=== PATIENT | male | born 1970 | race African-American/Black ===

== ENCOUNTER 2021-07-05 01:03 | Observation (INO) | payer SELFPAY ==
[2021-07-05 03:18] VITALS: BMI 34.7
[2021-07-05] MEDS ORDERED: Ondansetron PF 4 MG/2 ML Vial IVP PRN (03:24)
[2021-07-05] MEDS ORDERED: Nitroglycerin 0.4 MG TAB (25 Tab Bottle) SL PRN (03:24)
[2021-07-05] MEDS ORDERED: Acetaminophen 325 MG TAB PO PRN (03:24)
[2021-07-05] MEDS ORDERED: Morphine 4 MG/ML VIAL SLOW IVP PRN (03:55)
[2021-07-05 05:03] LABS: #Eosinphils 0.1 thou/uL (0.0-0.7); #Lymphocytes 2.4 thou/uL (1.20-3.40); #Monocytes 0.6 thou/uL (0.11-0.59); #Neutrophils 2.2 thou/uL (1.40-6.50); %Basophils 0.6 % (0.0-1.0); %Eosinophils 1.5 % (0.0-10.0); %Lymphocytes 45.4 % (21.0-51.0); %Monocytes 11.1 % (0.0-10.0); %Neutrophils 41.4 % (42.0-75.0); Hemoglobin 12.5 g/dL (14.0-18.0); Mean Corpuscular HGB CONC 34.2 g/dL (32.0-36.0); Mean Corpuscular Hemoglobin 29.9 pg (27.0-31.0); Mean Corpuscular Volume 87.3 fL (78.0-98.0); Mean Platelet Volume 6.9 fL (7.4-10.4); Platelet Count 226 thou/uL (130-400); RBC Distribution Width 12.1 % (11.5-14.5); Red Blood Cell (RBC) Count 4.19 mill/uL (4.70-6.10); White Blood Cell (WBC) Count 5.2 thou/uL (4.8-10.8)
[2021-07-05 05:06] LABS: Anion Gap 11 mmol/L (10-20); BUN (Urea Nitrogen) 15 mg/dL (8.4-25.7); Calc. Creatinine Clearance 134 mL/min (70-130); Calcium 8.8 mg/dL (7.8-10.44); Carbon Dioxide 23 mmol/L (22-29); Cardiac Risk 3.2 (Less than 4.5); Chloride 106 mmol/L (98-107); Cholesterol 147 mg/dl (< 200 Desired); Glucose 87 mg/dL (70-105); HDL Cholesterol 46 mg/dL (>60 Neg Risk); LDL Cholesterol, Calculated 91 mg/dL; Potassium 3.8 mmol/L (3.5-5.1); Sodium 136 mmol/L (136-145); Triglycerides 52 mg/dL (Less than 150)
[2021-07-05 05:08] LABS: Troponin I Less than 0.010 ng/mL (< 0.028)
[2021-07-05] MEDS ORDERED: Atropine Sulfate 1 mg/10 ml Syringe IVP SCH (05:30)
[2021-07-05] MEDS ORDERED: CATH Communication Order-Pharmacy FS SCH (08:15)
[2021-07-05] MEDS ORDERED: Sodium Chloride 0.9% 1,000 ML IV SCH ×2 (08:15→15:36)
[2021-07-05 08:16] LABS: Troponin I Less than 0.010 ng/mL (< 0.028)
[2021-07-05] MEDS ORDERED: Enoxaparin Sodium 40 MG/0.4 ML SYRINGE SC SCH (09:00)
[2021-07-05] MEDS: Amlodipine 10 MG TAB PO SCH (09:10)
[2021-07-05] MEDS: Aspirin 81 mg Enteric Coated Tablet PO SCH (09:11)
[2021-07-05] MEDS: Triamterene/Hydrochlorothiazide 37.5 mg/25 mg Tablet PO SCH (10:00)
[2021-07-05] MEDS ORDERED: Heparin 10,000 UNITS/ 10 ML VIAL ONE (13:30)
[2021-07-05] MEDS ORDERED: Midazolam HCl 2 mg/2 ml Vial ONE (13:44)
[2021-07-05] MEDS ORDERED: Fentanyl 100 MCG/2 ML VIAL ONE (13:44)
[2021-07-05] MEDS ORDERED: Bivalirudin 250 MG VIAL ONE (14:25)
[2021-07-05] MEDS ORDERED: Clopidogrel Bisulfate 300 MG TAB ONE (14:35)
[2021-07-05] MEDS ORDERED: hydrALAZINE 20 MG/ML VIAL SLOW IVP PRN (15:53)
[2021-07-05] MEDS ORDERED: hydrALAZINE 20 MG/ML VIAL ONE (15:54)
[2021-07-05] MEDS ORDERED: Morphine 4 MG/ML VIAL ONE (17:40)
[2021-07-05] MEDS ORDERED: Atorvastatin Calcium 10 MG TAB PO SCH (21:00)
[2021-07-05] MEDS ORDERED: Atorvastatin Calcium 20 MG TAB PO SCH (21:00)
[2021-07-05] MEDS: Famotidine 20 MG TAB PO SCH (21:26)
[2021-07-05] MEDS ORDERED: Calcium Carbonate 500 MG ChewTAB PO SCH (23:45)
[2021-07-06 04:57] LABS: #Eosinphils 0.1 thou/uL (0.0-0.7); #Lymphocytes 1.5 thou/uL (1.20-3.40); #Monocytes 0.6 thou/uL (0.11-0.59); #Neutrophils 3.4 thou/uL (1.40-6.50); %Basophils 0.5 % (0.0-1.0); %Eosinophils 1.4 % (0.0-10.0); %Lymphocytes 26.7 % (21.0-51.0); %Monocytes 10.5 % (0.0-10.0); %Neutrophils 60.8 % (42.0-75.0); Hemoglobin 13.4 g/dL (14.0-18.0); Mean Corpuscular HGB CONC 35.2 g/dL (32.0-36.0); Mean Corpuscular Hemoglobin 30.4 pg (27.0-31.0); Mean Corpuscular Volume 86.2 fL (78.0-98.0); Mean Platelet Volume 6.9 fL (7.4-10.4); Platelet Count 250 thou/uL (130-400); RBC Distribution Width 12.1 % (11.5-14.5); Red Blood Cell (RBC) Count 4.42 mill/uL (4.70-6.10); White Blood Cell (WBC) Count 5.5 thou/uL (4.8-10.8)
[2021-07-06 05:18] LABS: ALT (SGPT) 14 U/L (8-55); AST (SGOT) 13 U/L (5-34); Albumin 3.7 g/dL (3.5-5.0); Alkaline Phosphatase 50 U/L (40-110); Anion Gap 10 mmol/L (10-20); BUN (Urea Nitrogen) 16 mg/dL (8.4-25.7); Bilirubin, Total 0.3 mg/dL (0.2-1.2); Calc. Creatinine Clearance 114 mL/min (70-130); Calcium 9.3 mg/dL (7.8-10.44); Carbon Dioxide 26 mmol/L (22-29); Chloride 105 mmol/L (98-107); Globulin 2.9 g/dL (2.4-3.5); Glucose 90 mg/dL (70-105); Magnesium 2.3 mg/dL (1.6-2.6); Potassium 3.8 mmol/L (3.5-5.1); Protein, Total 6.6 g/dL (6.0-8.3); Sodium 137 mmol/L (136-145)
[2021-07-06] MEDS: Amlodipine 10 MG TAB PO SCH (09:33)
[2021-07-06] MEDS: Aspirin 81 mg Enteric Coated Tablet PO SCH (09:33)
[2021-07-06] MEDS: Famotidine 20 MG TAB PO SCH (09:34)
[2021-07-06] MEDS: Triamterene/Hydrochlorothiazide 37.5 mg/25 mg Tablet PO SCH (10:18)
[2021-07-06] MEDS ORDERED: hydrALAZINE 25 MG TAB PO SCH ×2 (10:30→21:00)
[2021-07-06 12:16] VITALS: BP 129/78; TEMP 97.3
== END 2021-07-06 12:05 | disposition home or self-care (01) ==
LOC: 2NO 01:03
PROVIDERS: ADMIT Internal Medicine; ATTEND Internal Medicine
PROC: 02703ZZ Dilation of Coronary Artery, One Artery, Percutaneous Approach (ICD-10-PCS; principal; 2021-07-05)
PROC: 4A023N7 Measurement of Cardiac Sampling and Pressure, Left Heart, Percutaneous Approach (ICD-10-PCS; 2021-07-05)
PROC: B2111ZZ Fluoroscopy of Multiple Coronary Arteries using Low Osmolar Contrast (ICD-10-PCS; 2021-07-05)
DX: I24.9 Acute ischemic heart disease, unspecified (principal); I25.10 Atherosclerotic heart disease of native coronary artery without angina pectoris; I10 Essential (primary) hypertension; E78.5 Hyperlipidemia, unspecified; R00.1 Bradycardia, unspecified; T44.7X5A Adverse effect of beta-adrenoreceptor antagonists, initial encounter; D53.9 Nutritional anemia, unspecified; I45.10 Unspecified right bundle-branch block; E78.00 Pure hypercholesterolemia, unspecified; F17.290 Nicotine dependence, other tobacco product, uncomplicated; E66.9 Obesity, unspecified; Z68.34 Body mass index [BMI] 34.0-34.9, adult; Z79.82 Long term (current) use of aspirin; Z79.899 Other long term (current) drug therapy; Z88.8 Allergy status to other drugs, medicaments and biological substances
CPT/HCPCS: 36415; 80048; 80053; 80061; 83735; 84484; 85025; 85347; 92920; 93005; 93010; 93458; 96374; 99152; 99153; C1769; C1874; G0378; J0153; J0360; J0461; J0583; J1644; J2250; J2270; J3010; J7050

== ENCOUNTER 2021-09-30 14:02 | Observation (INO) | payer OTHER, SELFPAY ==
[2021-09-30 15:55] VITALS: BMI 35.5
[2021-09-30] MEDS ORDERED: Morphine 2 MG/ML VIAL SLOW IVP PRN (16:10)
[2021-09-30] MEDS ORDERED: Acetaminophen 325 MG TAB PO PRN (17:00)
[2021-09-30] MEDS ORDERED: Ondansetron ODT 4 MG TAB PO PRN (17:00)
[2021-09-30] MEDS ORDERED: Ondansetron PF 4 MG/2 ML Vial IVP PRN (17:00)
[2021-09-30] MEDS ORDERED: Nitroglycerin 0.4 MG TAB (25 Tab Bottle) SL PRN (17:01)
[2021-09-30] MEDS ORDERED: hydrALAZINE 20 MG/ML VIAL SLOW IVP PRN (17:02)
[2021-09-30] MEDS ORDERED: Aspirin Chewable 81 MG TAB PO SCH (17:15)
[2021-09-30] MEDS ORDERED: Electrolyte Replacement Protocol FS PRN (17:15)
[2021-09-30] MEDS ORDERED: Electrolyte Replacement Protocol 1 EACH FS SCH (17:15)
[2021-09-30] MEDS ORDERED: Nicotine 7 MG PATCH TD PRN (17:31)
[2021-09-30 20:41] LABS: Amphetamine Not Detected (NotDetected); Barbiturates Screen Not Detected (NotDetected); Benzodiazepine Screen Not Detected (NotDetected); Cocaine Metabolite Screen Detected (NotDetected); Methadone Not Detected (NotDetected); Methamphetamine Not Detected (NotDetected); Opiate Screen Not Detected (NotDetected); Oxycodone Screen Not Detected (NotDetected); Phencyclidine (PCP) Not Detected (NotDetected); THC/Cannabinoid Screen Not Detected (NotDetected); Tricyclic Screen Not Detected (NotDetected)
[2021-09-30] MEDS ORDERED: Magnesium 2 GM/50 ML(in water) 2 GM in Premix Bag 1 BAG IVPB SCH (20:45)
[2021-09-30] MEDS: Sodium Chloride 0.9% 1,000 ML IV SCH (21:03)
[2021-09-30] MEDS: Atorvastatin Calcium 40 MG TAB PO SCH (21:05)
[2021-09-30] MEDS: hydrALAZINE 25 MG TAB PO SCH (21:05)
[2021-09-30] MEDS ORDERED: Nitroglycerin 2% Ointment 1 INCH/1 GM Packet TOP SCH (22:00)
[2021-10-01 07:14] LABS: #Eosinphils 0.1 thou/uL (0.0-0.7); #Lymphocytes 1.9 thou/uL (1.20-3.40); #Monocytes 0.4 thou/uL (0.11-0.59); #Neutrophils 1.9 thou/uL (1.40-6.50); %Basophils 0.9 % (0.0-1.0); %Eosinophils 2.3 % (0.0-10.0); %Lymphocytes 43.6 % (21.0-51.0); %Monocytes 9.2 % (0.0-10.0); Hemoglobin 13.3 g/dL (14.0-18.0); Mean Corpuscular HGB CONC 34.8 g/dL (32.0-36.0); Mean Corpuscular Hemoglobin 30.4 pg (27.0-31.0); Mean Corpuscular Volume 87.5 fL (78.0-98.0); Mean Platelet Volume 7.2 fL (7.4-10.4); Platelet Count 202 thou/uL (130-400); RBC Distribution Width 12.5 % (11.5-14.5); Red Blood Cell (RBC) Count 4.38 mill/uL (4.70-6.10); White Blood Cell (WBC) Count 4.2 thou/uL (4.8-10.8)
[2021-10-01 07:35] LABS: Anion Gap 11 mmol/L (10-20); BUN (Urea Nitrogen) 16 mg/dL (8.4-25.7); Calc. Creatinine Clearance 109 mL/min (70-130); Carbon Dioxide 27 mmol/L (22-29); Cardiac Risk 3.1 (Less than 4.5); Chloride 106 mmol/L (98-107); Cholesterol 125 mg/dl (< 200 Desired); Glucose 98 mg/dL (70-105); HDL Cholesterol 40 mg/dL (>60 Neg Risk); LDL Cholesterol, Calculated 62 mg/dL; Magnesium 2.2 mg/dL (1.6-2.6); Potassium 3.8 mmol/L (3.5-5.1); Sodium 140 mmol/L (136-145); Triglycerides 115 mg/dL (Less than 150)
[2021-10-01] MEDS: hydrALAZINE 25 MG TAB PO SCH ×2 (08:28→21:04)
[2021-10-01] MEDS: Aspirin Chewable 81 MG TAB PO SCH (08:28)
[2021-10-01] MEDS: Amlodipine 5 MG TAB PO SCH (08:28)
[2021-10-01] MEDS: Sodium Chloride 0.9% 1,000 ML IV SCH (11:10)
[2021-10-01] MEDS ORDERED: Lidocaine 2% Viscous Solution 20 ML, Aluminum & Magnesium Hydroxide 30 ML, Donnatal Eli... SSW SCH (14:15)
[2021-10-01] MEDS: Atorvastatin Calcium 40 MG TAB PO SCH (21:05)
[2021-10-02] MEDS: Sodium Chloride 0.9% 1,000 ML IV SCH ×3 (00:27→12:27)
[2021-10-02 05:17] LABS: #Eosinphils 0.1 thou/uL (0.0-0.7); #Lymphocytes 1.5 thou/uL (1.20-3.40); #Monocytes 0.4 thou/uL (0.11-0.59); #Neutrophils 1.9 thou/uL (1.40-6.50); %Basophils 0.6 % (0.0-1.0); %Eosinophils 2.2 % (0.0-10.0); %Lymphocytes 38.5 % (21.0-51.0); %Monocytes 10.3 % (0.0-10.0); %Neutrophils 48.4 % (42.0-75.0); Hemoglobin 12.5 g/dL (14.0-18.0); Mean Corpuscular HGB CONC 35.3 g/dL (32.0-36.0); Mean Corpuscular Hemoglobin 30.7 pg (27.0-31.0); Mean Corpuscular Volume 86.8 fL (78.0-98.0); Mean Platelet Volume 7.4 fL (7.4-10.4); Platelet Count 211 thou/uL (130-400); RBC Distribution Width 12.5 % (11.5-14.5); Red Blood Cell (RBC) Count 4.09 mill/uL (4.70-6.10); White Blood Cell (WBC) Count 3.9 thou/uL (4.8-10.8)
[2021-10-02 05:37] LABS: Anion Gap 9 mmol/L (10-20); BUN (Urea Nitrogen) 18 mg/dL (8.4-25.7); Calc. Creatinine Clearance 114 mL/min (70-130); Calcium 8.7 mg/dL (7.8-10.44); Carbon Dioxide 29 mmol/L (22-29); Chloride 105 mmol/L (98-107); Glucose 101 mg/dL (70-105); Potassium 3.8 mmol/L (3.5-5.1); Sodium 139 mmol/L (136-145)
[2021-10-02] MEDS: Amlodipine 5 MG TAB PO SCH (09:19)
[2021-10-02] MEDS: Aspirin Chewable 81 MG TAB PO SCH (09:20)
[2021-10-02] MEDS: hydrALAZINE 25 MG TAB PO SCH (09:20)
[2021-10-02 11:53] VITALS: BP 140/90; TEMP 98
== END 2021-10-02 13:27 | disposition home or self-care (01) ==
LOC: 2SW 15:40
PROVIDERS: ADMIT Internal Medicine; ATTEND Internal Medicine
DX: R07.89 Other chest pain (principal); I25.10 Atherosclerotic heart disease of native coronary artery without angina pectoris; N17.9 Acute kidney failure, unspecified; I10 Essential (primary) hypertension; E78.5 Hyperlipidemia, unspecified; F17.290 Nicotine dependence, other tobacco product, uncomplicated; E78.00 Pure hypercholesterolemia, unspecified; R00.1 Bradycardia, unspecified; F14.10 Cocaine abuse, uncomplicated; Z91.14 Patient's other noncompliance with medication regimen; Z79.82 Long term (current) use of aspirin; Z79.899 Other long term (current) drug therapy; Z88.8 Allergy status to other drugs, medicaments and biological substances; Z95.5 Presence of coronary angioplasty implant and graft
CPT/HCPCS: 36415; 36416; 80048; 80061; 80306; 82550; 83735; 84443; 85025; 94760; 96374; G0378; J3475; J7050

== ENCOUNTER 2021-11-26 10:57 | Observation (INO) | payer SELFPAY ==
[2021-11-26 18:34] VITALS: BMI 36.3
[2021-11-26] MEDS ORDERED: Acetaminophen 325 MG TAB PO PRN (21:40)
[2021-11-26] MEDS ORDERED: Acetaminophen 650 MG Suppository PR PRN (21:40)
[2021-11-26] MEDS ORDERED: Ondansetron ODT 4 MG TAB PO PRN (21:40)
[2021-11-26] MEDS ORDERED: Nitroglycerin 0.4 MG TAB (25 Tab Bottle) SL PRN (21:40)
[2021-11-26] MEDS ORDERED: Ondansetron PF 4 MG/2 ML Vial IVP PRN (21:40)
[2021-11-27] MEDS: Sodium Chloride 0.9% 1,000 ML IV SCH ×2 (00:19→10:00)
[2021-11-27 00:58] LABS: Bacteria/HPF None Seen HPF (None Seen); Bilirubin Negative (Negative); Blood, Urine Trace (Negative); Clarity Clear (Clear); Glucose, Urine (Dipstick) 200 mg/dL (Negative); Ketone, Urine Negative (Negative); Leukocyte Negative Leu/uL (Negative); Nitrite Negative (Negative); Protein, Urine (Dipstick) 20 mg/dL (Neg-Trace); RBC/HPF 0-3 HPF (0-3); Squamous Epithelial 0-3 HPF (0-3); Urobilinogen Normal mg/dL (Less than 2); WBC/HPF 0-3 HPF (0-3); pH, Urine 5.5 (5.0-9.0)
[2021-11-27 01:03] LABS: Amphetamine Detected (NotDetected); Barbiturates Screen Not Detected (NotDetected); Benzodiazepine Screen Not Detected (NotDetected); Cocaine Metabolite Screen Detected (NotDetected); Methadone Not Detected (NotDetected); Methamphetamine Detected (NotDetected); Opiate Screen Not Detected (NotDetected); Oxycodone Screen Not Detected (NotDetected); Phencyclidine (PCP) Not Detected (NotDetected); THC/Cannabinoid Screen Detected (NotDetected); Tricyclic Screen Not Detected (NotDetected)
[2021-11-27 01:03] LABS: #Basophils 0.1 thou/uL (0.0-0.2); #Eosinphils 0.1 thou/uL (0.0-0.7); #Lymphocytes 1.5 thou/uL (1.20-3.40); #Monocytes 0.4 thou/uL (0.11-0.59); #Neutrophils 2.7 thou/uL (1.40-6.50); %Basophils 1.2 % (0.0-1.0); %Eosinophils 1.6 % (0.0-10.0); %Lymphocytes 32.3 % (21.0-51.0); %Monocytes 9.1 % (0.0-10.0); %Neutrophils 55.9 % (42.0-75.0); Hemoglobin 12.1 g/dL (14.0-18.0); Mean Corpuscular HGB CONC 35.2 g/dL (32.0-36.0); Mean Corpuscular Hemoglobin 30.4 pg (27.0-31.0); Mean Corpuscular Volume 86.4 fL (78.0-98.0); Mean Platelet Volume 7.4 fL (7.4-10.4); Platelet Count 162 thou/uL (130-400); RBC Distribution Width 12.6 % (11.5-14.5); Red Blood Cell (RBC) Count 3.97 mill/uL (4.70-6.10); White Blood Cell (WBC) Count 4.7 thou/uL (4.8-10.8)
[2021-11-27 01:21] LABS: Anion Gap 12 mmol/L (10-20); BUN (Urea Nitrogen) 21 mg/dL (8.4-25.7); Calc. Creatinine Clearance 102 mL/min (70-130); Calcium 8.5 mg/dL (7.8-10.44); Carbon Dioxide 24 mmol/L (22-29); Chloride 108 mmol/L (98-107); Estimated GFR 57; Glucose 113 mg/dL (70-105); Potassium 3.6 mmol/L (3.5-5.1); Sodium 140 mmol/L (136-145)
[2021-11-27] MEDS ORDERED: hydrALAZINE 25 MG TAB PO SCH (09:00)
[2021-11-27] MEDS ORDERED: Amlodipine 5 MG TAB PO SCH (09:00)
[2021-11-27] MEDS ORDERED: Enoxaparin Sodium 40 MG/0.4 ML SYRINGE SC SCH (09:00)
[2021-11-27] MEDS ORDERED: hydrALAZINE 25 MG TAB PO PRN (09:59)
[2021-11-27 11:23] LABS: Troponin I Less than 0.010 ng/mL (< 0.028)
[2021-11-27 11:34] VITALS: TEMP 98
[2021-11-27] MEDS ORDERED: Silver Sulfadiazine 50 GM TUBE TOP SCH ×2 (11:45→21:00)
[2021-11-27 14:43] LABS: Troponin I Less than 0.010 ng/mL (< 0.028)
[2021-11-27 15:28] VITALS: BP 174/104
[2021-11-27] MEDS ORDERED: Atorvastatin Calcium 40 MG TAB PO SCH (21:00)
== END 2021-11-27 17:55 | disposition home or self-care (01) ==
LOC: 2SW 10:57
PROVIDERS: ADMIT Internal Medicine; ATTEND Internal Medicine
DX: R07.89 Other chest pain (principal); R53.83 Other fatigue; N17.9 Acute kidney failure, unspecified; I10 Essential (primary) hypertension; F15.10 Other stimulant abuse, uncomplicated; F14.10 Cocaine abuse, uncomplicated; I25.10 Atherosclerotic heart disease of native coronary artery without angina pectoris; E78.00 Pure hypercholesterolemia, unspecified; F17.200 Nicotine dependence, unspecified, uncomplicated; Z79.82 Long term (current) use of aspirin; Z79.899 Other long term (current) drug therapy; Z88.8 Allergy status to other drugs, medicaments and biological substances; Z95.5 Presence of coronary angioplasty implant and graft
CPT/HCPCS: 36415; 80306; 81001; 83880; 84484; 94760; 96372; G0378; J1650; J7050

== ENCOUNTER 2022-09-09 16:48 | Inpatient (IN) | payer SELFPAY ==
[2022-09-09] MEDS ORDERED: Ondansetron PF 4 MG/2 ML Vial IVP PRN (20:02)
[2022-09-09] MEDS ORDERED: Ondansetron ODT 4 MG TAB PO PRN (20:02)
[2022-09-09] MEDS ORDERED: Nitroglycerin 0.4 MG TAB (25 Tab Bottle) SL PRN (20:02)
[2022-09-09] MEDS ORDERED: Acetaminophen 650 MG Suppository PR PRN (20:02)
[2022-09-09 20:34] VITALS: BMI 37.5
[2022-09-09] MEDS: Morphine 4 MG/ML VIAL SLOW IVP PRN (21:44)
[2022-09-09] MEDS ORDERED: hydrALAZINE 25 MG TAB PO SCH (21:45)
[2022-09-09] MEDS: Enoxaparin 120 MG/0.8 ML SYRINGE SC SCH (21:47)
[2022-09-10 05:10] LABS: #Eosinphils 0.1 thou/uL (0.0-0.7); #Lymphocytes 2.2 thou/uL (1.20-3.40); #Monocytes 0.4 thou/uL (0.11-0.59); #Neutrophils 1.8 thou/uL (1.40-6.50); %Lymphocytes 48.7 % (21.0-51.0); %Monocytes 8.9 % (0.0-10.0); %Neutrophils 39.3 % (42.0-75.0); Hemoglobin 13.1 g/dL (14.0-18.0); Mean Corpuscular HGB CONC 37.1 g/dL (32.0-36.0); Mean Corpuscular Hemoglobin 31.9 pg (27.0-31.0); Mean Corpuscular Volume 85.9 fl (78.0-98.0); Mean Platelet Volume 7.6 fL (7.4-10.4); Platelet Count 211 10x3/uL (130-400); RBC Distribution Width 12.8 % (11.5-14.5); Red Blood Cell (RBC) Count 4.13 mill/uL (4.70-6.10); White Blood Cell (WBC) Count 4.5 10x3/uL (4.8-10.8)
[2022-09-10 05:25] LABS: Anion Gap 12 mmol/L (10-20); BUN (Urea Nitrogen) 17 mg/dL (8.4-25.7); Calc. Creatinine Clearance 111 mL/min (70-130); Calcium 8.8 mg/dL (7.8-10.44); Carbon Dioxide 22 mmol/L (22-29); Chloride 107 mmol/L (98-107); Estimated GFR 62; Glucose 90 mg/dL (70-105); Potassium 3.8 mmol/L (3.5-5.1); Sodium 137 mmol/L (136-145)
[2022-09-10] MEDS: Aspirin Chewable 81 MG TAB PO SCH (10:05)
[2022-09-10] MEDS: Enoxaparin 120 MG/0.8 ML SYRINGE SC SCH (10:05)
[2022-09-10] MEDS: Amlodipine 5 MG TAB PO SCH (10:05)
[2022-09-10] MEDS: hydrALAZINE 25 MG TAB PO SCH ×3 (10:06→20:52)
[2022-09-10 12:48] LABS: Bacteria/HPF None Seen HPF (None Seen); Bilirubin Negative (Negative); Blood, Urine Negative (Negative); CAUTI Indications for Culture Dysuria,urgency,freq; Clarity Clear (Clear); Glucose, Urine (Dipstick) Normal (Negative); Ketone, Urine Negative (Negative); Leukocyte Negative Leu/uL (Negative); Nitrite Negative (Negative); Protein, Urine (Dipstick) Negative (Neg-Trace); RBC/HPF 0-3 HPF (0-3); Squamous Epithelial None Seen HPF (0-3); Urobilinogen Normal mg/dL (Less than 2); WBC/HPF None Seen HPF (0-3); pH, Urine 5.5 (5.0-9.0)
[2022-09-10 12:53] LABS: Urine Culture Reflex No No
[2022-09-10] MEDS ORDERED: Sodium Chloride 0.9% 1,000 ML IV SCH (17:45)
[2022-09-10] MEDS ORDERED: Communication Order-Pharmacy FS PRN (18:15)
[2022-09-10 19:03] LABS: Amphetamine Not Detected (NotDetected); Barbiturates Screen Not Detected (NotDetected); Benzodiazepine Screen Not Detected (NotDetected); Cocaine Metabolite Screen Detected (NotDetected); Methadone Not Detected (NotDetected); Methamphetamine Not Detected (NotDetected); Opiate Screen Detected (NotDetected); Oxycodone Screen Not Detected (NotDetected); Phencyclidine (PCP) Not Detected (NotDetected); THC/Cannabinoid Screen Not Detected (NotDetected); Tricyclic Screen Not Detected (NotDetected)
[2022-09-10] MEDS ORDERED: Nitroglycerin 2% Ointment 1 INCH/1 GM Packet TOP SCH (21:00)
[2022-09-10] MEDS: Nitroglycerin 2% Ointment 1 INCH/1 GM Packet TOP SCH (23:52)
[2022-09-11 04:31] LABS: #Eosinphils 0.1 thou/uL (0.0-0.7); #Lymphocytes 1.8 thou/uL (1.20-3.40); #Monocytes 0.4 thou/uL (0.11-0.59); #Neutrophils 2.2 thou/uL (1.40-6.50); %Basophils 0.5 % (0.0-1.0); %Eosinophils 1.7 % (0.0-10.0); %Lymphocytes 40.3 % (21.0-51.0); %Monocytes 9.6 % (0.0-10.0); %Neutrophils 47.8 % (42.0-75.0); Hemoglobin 13.1 g/dL (14.0-18.0); Mean Corpuscular HGB CONC 34.2 g/dL (32.0-36.0); Mean Corpuscular Hemoglobin 29.2 pg (27.0-31.0); Mean Corpuscular Volume 85.2 fl (78.0-98.0); Mean Platelet Volume 7.5 fL (7.4-10.4); Platelet Count 229 10x3/uL (130-400); RBC Distribution Width 12.8 % (11.5-14.5); White Blood Cell (WBC) Count 4.5 10x3/uL (4.8-10.8)
[2022-09-11 04:56] LABS: Anion Gap 13 mmol/L (10-20); BUN (Urea Nitrogen) 16 mg/dL (8.4-25.7); Calc. Creatinine Clearance 107 mL/min (70-130); Calcium 9.1 mg/dL (7.8-10.44); Carbon Dioxide 22 mmol/L (22-29); Chloride 107 mmol/L (98-107); Estimated GFR 59; Glucose 91 mg/dL (70-105); Potassium 3.6 mmol/L (3.5-5.1); Sodium 138 mmol/L (136-145)
[2022-09-11] MEDS: Aspirin Chewable 81 MG TAB PO SCH (05:25)
[2022-09-11] MEDS: hydrALAZINE 25 MG TAB PO SCH ×3 (05:25→20:21)
[2022-09-11] MEDS: Amlodipine 5 MG TAB PO SCH (05:26)
[2022-09-11] MEDS: Nitroglycerin 2% Ointment 1 INCH/1 GM Packet TOP SCH (05:49)
[2022-09-11] MEDS ORDERED: Sodium Chloride 0.9% 1,000 ML IV SCH ×2 (06:00→08:54)
[2022-09-11] MEDS ORDERED: Lidocaine 1% (PF) 30 ML VIAL ONE (06:08)
[2022-09-11] MEDS ORDERED: Heparin 10,000 UNITS/ 10 ML VIAL ONE (06:09)
[2022-09-11] MEDS ORDERED: Midazolam HCl 2 mg/2 ml Vial ONE (06:58)
[2022-09-11] MEDS ORDERED: fentaNYL 50 mcg/mL 1 mL Vial ONE (06:58)
[2022-09-11] MEDS ORDERED: Bivalirudin 250 MG VIAL ONE (07:54)
[2022-09-11] MEDS ORDERED: Nitroglycerin 50 MG/250 ML BOT 250 ML ONE (07:57)
[2022-09-11] MEDS ORDERED: Clopidogrel Bisulfate 300 MG TAB ONE (08:09)
[2022-09-11] MEDS ORDERED: Acetaminophen 325 MG TAB ONE (09:23)
[2022-09-11] MEDS: Acetaminophen 325 MG TAB PO PRN ×2 (09:28→15:50)
[2022-09-11] MEDS ORDERED: Iopamidol 370 76% 100 ML VIAL ONE (09:50)
[2022-09-11] MEDS ORDERED: Morphine 4 MG/ML VIAL ONE (10:49)
[2022-09-11] MEDS: Morphine 4 MG/ML VIAL SLOW IVP PRN ×2 (10:56→14:39)
[2022-09-11] MEDS: Sodium Chloride 0.9% 1,000 ML IV SCH (15:52)
[2022-09-11 19:24] LABS: Creatinine, Urine 143.27 mg/dL (63-166)
[2022-09-11] MEDS: Simethicone Chewable 80 MG TAB PO PRN (20:22)
[2022-09-12 05:06] LABS: #Monocytes 0.3 thou/uL (0.11-0.59); #Neutrophils 2.6 thou/uL (1.40-6.50); %Eosinophils 1.2 % (0.0-10.0); %Lymphocytes 25.6 % (21.0-51.0); %Monocytes 8.4 % (0.0-10.0); %Neutrophils 64.8 % (42.0-75.0); Hemoglobin 12.8 g/dL (14.0-18.0); Mean Corpuscular HGB CONC 35.4 g/dL (32.0-36.0); Mean Corpuscular Hemoglobin 29.8 pg (27.0-31.0); Mean Corpuscular Volume 84.3 fl (78.0-98.0); Mean Platelet Volume 7.3 fL (7.4-10.4); Platelet Count 205 10x3/uL (130-400); RBC Distribution Width 12.8 % (11.5-14.5); White Blood Cell (WBC) Count 4.1 10x3/uL (4.8-10.8)
[2022-09-12 05:30] LABS: ALT (SGPT) 9 U/L (8-55); AST (SGOT) 11 U/L (5-34); Albumin 3.7 g/dL (3.5-5.0); Alkaline Phosphatase 54 U/L (40-110); Anion Gap 11 mmol/L (10-20); BUN (Urea Nitrogen) 13 mg/dL (8.4-25.7); Bilirubin, Total 0.3 mg/dL (0.2-1.2); Calc. Creatinine Clearance 110 mL/min (70-130); Calcium 8.9 mg/dL (7.8-10.44); Carbon Dioxide 22 mmol/L (22-29); Chloride 108 mmol/L (98-107); Estimated GFR 60; Glucose 97 mg/dL (70-105); Potassium 3.7 mmol/L (3.5-5.1); Protein, Total 6.7 g/dL (6.0-8.3); Sodium 137 mmol/L (136-145)
[2022-09-12] MEDS: Sodium Chloride 0.9% 1,000 ML IV SCH (06:25)
[2022-09-12 08:55] VITALS: BP 148/98; TEMP 98.4
[2022-09-12] MEDS ORDERED: hydrALAZINE 25 MG TAB PO SCH (09:00)
[2022-09-12] MEDS ORDERED: Clopidogrel Bisulfate 75 MG TAB PO SCH (09:00)
[2022-09-12] MEDS: Amlodipine 5 MG TAB PO SCH (10:46)
[2022-09-12] MEDS: Aspirin Chewable 81 MG TAB PO SCH (10:46)
[2022-09-12] MEDS: Simethicone Chewable 80 MG TAB PO PRN (10:46)
== END 2022-09-12 12:52 | disposition home or self-care (01) | DRG 247 ==
LOC: 2SW 19:06 → OBSVTOIN 09-11 09:14
PROVIDERS: ADMIT Internal Medicine; ATTEND Internal Medicine
PROC: 027034Z Dilation of Coronary Artery, One Artery with Drug-eluting Intraluminal Device, Percutaneous Approach (ICD-10-PCS; principal; 2022-09-09)
PROC: 4A023N7 Measurement of Cardiac Sampling and Pressure, Left Heart, Percutaneous Approach (ICD-10-PCS; 2022-09-09)
PROC: B2111ZZ Fluoroscopy of Multiple Coronary Arteries using Low Osmolar Contrast (ICD-10-PCS; 2022-09-09)
PROC: B2151ZZ Fluoroscopy of Left Heart using Low Osmolar Contrast (ICD-10-PCS; 2022-09-09)
DX: I25.110 Atherosclerotic heart disease of native coronary artery with unstable angina pectoris (principal); N17.9 Acute kidney failure, unspecified; R30.0 Dysuria; E78.1 Pure hyperglyceridemia; F14.10 Cocaine abuse, uncomplicated; F15.10 Other stimulant abuse, uncomplicated; T78.3XXA Angioneurotic edema, initial encounter; I12.9 Hypertensive chronic kidney disease with stage 1 through stage 4 chronic kidney disease, or unspecified chronic kidney disease; N18.9 Chronic kidney disease, unspecified; Z79.82 Long term (current) use of aspirin; Z95.5 Presence of coronary angioplasty implant and graft; Z79.899 Other long term (current) drug therapy; Z87.891 Personal history of nicotine dependence
CPT/HCPCS: 36415; 76770; 80048; 80053; 80306; 81001; 82570; 84300; 85025; 85347; 92978; 93005; 93010; 93306; 93458; 97139; 99152; 99153; C1753; C1769; C1876; C1887; G0378; J0583; J1644; J1650; J2001; J2250; J2270; J3010; J7050; Q9967

== ENCOUNTER 2023-01-29 12:37 | Observation (INO) | payer SELFPAY ==
[2023-01-29 14:36] VITALS: BMI 38.0
[2023-01-29] MEDS ORDERED: HYDROcodone/Acetaminophen 5/325 mg Tablet PO PRN (15:14)
[2023-01-29] MEDS ORDERED: Acetaminophen 325 MG TAB PO PRN (15:14)
[2023-01-29] MEDS ORDERED: Nitroglycerin 0.4 MG TAB (25 Tab Bottle) SL PRN (15:14)
[2023-01-29] MEDS ORDERED: Guaifenesin DM 100-10/5 ML UDCUP PO PRN (15:14)
[2023-01-29] MEDS ORDERED: Ondansetron PF 4 MG/2 ML Vial IVP PRN (15:14)
[2023-01-29] MEDS ORDERED: Simethicone Chewable 80 MG TAB PO PRN (15:18)
[2023-01-29 16:59] LABS: Troponin I Less than 0.010 ng/mL (< 0.028)
[2023-01-29 19:28] LABS: Troponin I Less than 0.010 ng/mL (< 0.028)
[2023-01-29 19:34] LABS: Amphetamine Not Detected (NotDetected); Barbiturates Screen Not Detected (NotDetected); Benzodiazepine Screen Not Detected (NotDetected); Cocaine Metabolite Screen Not Detected (NotDetected); Methadone Not Detected (NotDetected); Methamphetamine Not Detected (NotDetected); Opiate Screen Not Detected (NotDetected); Oxycodone Screen Not Detected (NotDetected); Phencyclidine (PCP) Not Detected (NotDetected); THC/Cannabinoid Screen Not Detected (NotDetected); Tricyclic Screen Not Detected (NotDetected)
[2023-01-29] MEDS: hydrALAZINE 25 MG TAB PO SCH (19:50)
[2023-01-29] MEDS ORDERED: Atorvastatin Calcium 40 MG TAB PO SCH (21:00)
[2023-01-30 05:25] LABS: #Eosinphils 0.1 thou/uL (0.0-0.7); #Monocytes 0.4 thou/uL (0.11-0.59); #Neutrophils 2.2 thou/uL (1.40-6.50); %Basophils 0.7 % (0.0-1.0); %Eosinophils 1.7 % (0.0-10.0); %Lymphocytes 34.7 % (21.0-51.0); %Monocytes 9.5 % (0.0-10.0); %Neutrophils 53.2 % (42.0-75.0); Hematocrit 36.3 % (42.0-52.0); Hemoglobin 13.3 g/dL (14.0-18.0); Mean Corpuscular HGB CONC 36.6 g/dL (32.0-36.0); Mean Corpuscular Hemoglobin 29.6 pg (27.0-31.0); Mean Corpuscular Volume 80.7 fl (78.0-98.0); Mean Platelet Volume 9.9 fL (7.4-10.4); Platelet Count 225 10x3/uL (130-400); White Blood Cell (WBC) Count 4.2 10x3/uL (4.8-10.8)
[2023-01-30 05:53] LABS: Anion Gap 12 mmol/L (10-20); BUN (Urea Nitrogen) 17 mg/dL (8.4-25.7); Calc. Creatinine Clearance 100 mL/min (70-130); Calcium 9.3 mg/dL (7.8-10.44); Carbon Dioxide 23 mmol/L (22-29); Cardiac Risk 3.8 (Less than 4.5); Chloride 105 mmol/L (98-107); Cholesterol 140 mg/dl (< 200 Desired); Estimated GFR 54; Glucose 96 mg/dL (70-105); HDL Cholesterol 37 mg/dL (>60 Neg Risk); LDL Cholesterol, Calculated 83 mg/dL; Potassium 3.6 mmol/L (3.5-5.1); Sodium 136 mmol/L (136-145); Triglycerides 98 mg/dL (Less than 150)
[2023-01-30] MEDS: hydrALAZINE 25 MG TAB PO SCH (08:46)
[2023-01-30] MEDS ORDERED: Aspirin Chewable 81 MG TAB PO SCH (09:00)
[2023-01-30] MEDS ORDERED: Clopidogrel Bisulfate 75 MG TAB PO SCH (09:00)
[2023-01-30] MEDS ORDERED: Amlodipine 5 MG TAB PO SCH (09:00)
[2023-01-30 12:04] VITALS: BP 169/97; TEMP 97.7
== END 2023-01-30 15:39 | disposition home or self-care (01) ==
LOC: 2SW 14:10
PROVIDERS: ADMIT Hospitalist; ATTEND Hospitalist
DX: I25.10 Atherosclerotic heart disease of native coronary artery without angina pectoris (principal); R07.9 Chest pain, unspecified; I10 Essential (primary) hypertension; E78.5 Hyperlipidemia, unspecified; K21.9 Gastro-esophageal reflux disease without esophagitis; F17.220 Nicotine dependence, chewing tobacco, uncomplicated; Z88.6 Allergy status to analgesic agent; Z79.82 Long term (current) use of aspirin; Z79.899 Other long term (current) drug therapy; Z79.02 Long term (current) use of antithrombotics/antiplatelets
CPT/HCPCS: 36415; 80048; 80061; 80306; 85025; 93005; 93010; 94760; 96372; G0378; J1650